=== PATIENT | male | born 1935 | race Caucasian/White ===

== ENCOUNTER → 2016-11-22 | Outpatient (CLI) | payer MEDICARE, BC ==
[~2016-11-22] MED LIST: ADVIL200 MG PO; ASPI325T6 PO; ASPIRIN 32325 MG/TAB PO; ASPIRIN E.C. 8181 MG PO; CARDI-OMEGA1000 MG PO; COLACE 100100 MG/CAP PO; COZAAR 25MG25 MG/TAB PO; DIOVAN 40MG40 MG PO; FLAXSEED OIL1000 MG PO; FLOMAX 0.40.4 MG/CAP PO; LASIX 20MG TABL20 MG PO; LIPITOR 10MG10 MG PO; LISINOPRIL PO; MOTRIN 600600 MG/TAB PO; NORCO 325 MG-51 TAB PO; NORCO 325 MG-7.1 TAB PO; NORVASC 10MG10 MG PO; NORVASC10 MG PO; PRILOSEC 20MG20 MG PO; SEREVENT IH; SPIRIVA RE2.5 MCG/Ac IH; THERAPEUTIC M PO; THEREMS-M1 TAB PO; ULTRAM 50MG TAB50 MG PO; ZESTRIL 10MG10 MG PO; ZIAC 5/6.25MG T1 TAB PO; ZOCOR 20MG20 MG PO; ZOLOFT 50MG50 MG PO
[2016-11-22 16:41] LABS: ALBUMIN 4.3 gm/dL (3.5-5.0); CALCIUM 9.2 mg/dL (8.4-10.2); CREATININE, serum 1.16 mg/dL (0.66-1.25); PHOSPHOROUS 3.4 mg/dL (2.5-4.5); POTASSIUM 4.4 mmol/L (3.4-5.0)
== END ==
LOC: ZCOL.LAB 15:29
PROVIDERS: Internal Medicine Cardiovascular Disease
DX: I50.9 Heart failure, unspecified (principal)

== ENCOUNTER → 2016-12-15 | Outpatient (CLI) | payer MEDICARE, BC | LOC: COL.PUL 09:44 | DX: J44.1 Chronic obstructive pulmonary disease with (acute) exacerbation (principal); Z87.891 Personal history of nicotine dependence ==

== ENCOUNTER 2019-01-17 13:16 | Emergency (ER) | payer MEDICARE, BC ==
[2019-01-17 13:16] VITALS: PULSE 0
--- NOTE | 2019-01-17 14:38 | NUR ---
Initial visit with daughter Kirsty following demise of Angel. Brazing Machine Feeder offered the Psa while awaiting patient's Physician Allergist Immunologist and additional family members.
--- NOTE | 2019-01-17 15:22 | NUR ---
CRISTIANA student responded to the ED for a code blue. The patient . CRISTIANA li provided support to the family. CRISTIANA student contacted HUSAM jessy billing representative and Pastor Wood with [facility]. The patient's family chose [facility] [place] [address]. The POC is Henok Nicki . supervisor/port director contacted [facility] and patient was not a candidate for donation. supervisor/port director contacted home. CRISTIANA student collaborated with bathhouse keeper and patient's nurse with the above information.
== END 2019-01-17 16:40 | disposition expired ==
LOC: COL.ER 13:16
DX: I46.9 Cardiac arrest, cause unspecified (principal); J44.9 Chronic obstructive pulmonary disease, unspecified; I11.0 Hypertensive heart disease with heart failure; I50.9 Heart failure, unspecified; F17.210 Nicotine dependence, cigarettes, uncomplicated; Z79.82 Long term (current) use of aspirin
CPT/HCPCS: J0171